=== PATIENT | male | born 2005 | race Two or more races ===

== ENCOUNTER 2024-06-17 15:25 | Emergency (ER) | payer OTHER ==
[2024-06-17 15:38] VITALS: BP 143/84; PULSE 63; RESP 18; TEMP 99.5; BMI 40.6
[2024-06-17] MEDS ORDERED: IBUPROFEN 600 MG TABLET (FP) PO ONE (17:58)
[2024-06-17] MEDS: IBUPROFEN 600 MG TABLET (FP) PO ONE (18:11)
== END 2024-06-17 18:37 | disposition home or self-care (01) ==
LOC: JERFT 15:25
DX: S63.501A Unspecified sprain of right wrist, initial encounter (principal); V49.40XA Driver injured in collision with unspecified motor vehicles in traffic accident, initial encounter
CPT/HCPCS: 73110-TC-RT-FY; 73130-TC-RT-FY; 99283-25